=== PATIENT | male | born 1955 | race Caucasian/White ===

== ENCOUNTER 2021-02-16 08:29 | Inpatient (IN) ==
[2021-02-16] MEDS ORDERED: 0.9 % Sodium Chloride 2,000 ML ONE (08:36)
[2021-02-16] MEDS ORDERED: *HR* Heparin 10,000 UNIT/10 ML VIAL ONE (08:37)
[2021-02-16] MEDS ORDERED: ISOVUE-370 200 ML INFUS..BTL ONE (08:37)
[2021-02-16] MEDS ORDERED: Heparin 1,000 UNITS/500 mL 500 ML ONE (08:37)
[2021-02-16] MEDS ORDERED: Nitroglycerin 1,000 MCG/5 ML VIAL IV ONE (08:37)
[2021-02-16] MEDS ORDERED: Morphine Sulfate 2 MG/ML SYRINGE IVP PRN (08:40)
[2021-02-16] MEDS ORDERED: *HR* Heparin 5,000 UNIT/ML VIAL IVP PRN ×2 (08:40)
[2021-02-16] MEDS ORDERED: *HR* Ticagrelor 90 MG TABLET PO ONE (08:40)
[2021-02-16] MEDS ORDERED: Ondansetron 4 MG/2 ML VIAL IVP ONE (08:40)
[2021-02-16] MEDS ORDERED: *HR* Heparin 5,000 UNIT/ML VIAL IVP ONE (08:40)
[2021-02-16] MEDS ORDERED: *HR* Midazolam HCl 2 MG/2 ML VIAL ONE (08:42)
[2021-02-16] MEDS ORDERED: *HR* FentaNYL (PF) 100 MCG/2 ML VIAL ONE (08:42)
[2021-02-16] MEDS ORDERED: Heparin 25,000UNIT/250ML 1/2NS 25,000 UNIT/250 ML IV.SOLN IVC SCH (08:45)
[2021-02-16 08:48] LABS: Basophils # 0.1 K/mcL (0.0-0.2); Basophils % 0.6 %; Eosinophils # 0.3 K/mcL (0.0-0.6); Eosinophils % 1.7 %; Hematocrit 39.1 % (37.5-50.1); Immature Granulocytes % 0.4 % (0-4); Lymphocytes # 3.8 K/mcL (0.6-4.6); Lymphocytes % 25.8 %; Mean Corpuscular HGB Conc 33.2 g/dL (31.6-35.5); Mean Corpuscular Hemoglobin 30.5 pg (28.0-33.3); Mean Corpuscular Volume 91.8 fL (83.0-100.0); Mean Platelet Volume 8.8 fL (9.4-12.4); Monocytes % 6.8 %; Neutrophils # 9.5 K/mcL (1.6-8.9); Platelet Count 369 K/mcL (140-400); Red Blood Count 4.26 M/mcL (4.19-5.50); Red Cell Distribution Width 13.5 % (11.5-14.5); Segmented Neutrophils % 64.7 %; White Blood Count 14.6 K/mcL (4.3-11.1)
[2021-02-16 08:58] LABS: Activated Partial Thrombo Time 26.5 Seconds (26.0-36.0); INR 0.9; Prothrombin Time 10.9 Seconds (9.4-12.1)
[2021-02-16 09:10] LABS: Alanine Aminotransferase 22 Units/L (7-52); Albumin 4.5 g/dL (3.5-5.7); Albumin/Globulin Ratio 1.5 (1.1-2.2); Alkaline Phosphatase 59 Units/L (34-104); Aspartate Amino Transferase 19 Units/L (13-39); BUN/Creatinine Ratio 19 (6-26); Bilirubin,Total 0.3 mg/dL (0.3-1.0); Blood Urea Nitrogen 19 mg/dL (8-23); Calcium 9.7 mg/dL (8.6-10.3); Carbon Dioxide 22 mEq/L (23-29); Chloride 103 mEq/L (98-107); Chol/HDL Ratio 4.9 (0-4.9); Cholesterol 147 mg/dL (< 200); Globulin 3.1 g/dL (2.4-3.5); Glucose 207 mg/dL (70-105); HDL Cholesterol 30 mg/dL (40-59); LDL Cholesterol,Calculated 71 mg/dL (< 100); Magnesium 1.4 mg/dL (1.6-2.6); Osmolality,Calculated 290 (280-300); Potassium 3.5 mEq/L (3.5-5.1); Sodium 136 mEq/L (136-145); Total Protein 7.6 g/dL (6.4-8.9); Triglycerides 231 mg/dL (< 150); Troponin I 0.03 ng/mL (< 0.04); eGFR For African Americans > 60 (> 60); eGFR For Non-African Americans > 60 (> 60)
[2021-02-16] MEDS ORDERED: Ondansetron 4 MG/2 ML VIAL IVP PRN (09:56)
[2021-02-16] MEDS ORDERED: Perflutren Lipid Microsphere 1.3 ML in 0.9 % Sodium Chloride 8.7 ML IVP PRN (09:56)
[2021-02-16] MEDS ORDERED: 0.9 % Sodium Chloride 1,000 ML IVC SCH (10:00)
[2021-02-16] MEDS ORDERED: *HR* Dextrose 50 % in Water (Vial) 50 ML VIAL IVP PRN (10:46)
[2021-02-16] MEDS ORDERED: D5% in Water 1,000 ML IVC PRN (10:46)
[2021-02-16] MEDS ORDERED: Dextrose Gel 15 GM/37.5 ML TUBE PO PRN ×2 (10:46)
[2021-02-16] MEDS: Insulin LISPRO 300 UNITS/3 ML VIAL SUBQ SCH ×2 (12:50→16:22)
[2021-02-16] MEDS: Magnesium Oxide 400 MG TABLET PO SCH ×2 (12:51→20:38)
[2021-02-16] MEDS: *HR* Heparin 5,000 UNIT/ML VIAL SQ SCH (16:16)
[2021-02-16] MEDS: carvediloL 6.25 MG TABLET PO SCH (16:17)
[2021-02-16] MEDS ORDERED: cloNIDine HCL 0.1 MG TABLET PO PRN (17:39)
[2021-02-16] MEDS ORDERED: *HR* HYDROcodone/Acet 5/325 mg TABLET PO PRN (17:39)
[2021-02-16] MEDS: *HR* Ticagrelor 90 MG TABLET PO SCH (20:37)
[2021-02-16] MEDS ORDERED: NON-FORMULARY MEDICATION 1 EACH EACH (Fish Oil/Dha/Epa [Fish Oil 1,200 Mg Fish Oil] 1 EACH PO SCH (21:00)
[2021-02-17] MEDS: *HR* Heparin 5,000 UNIT/ML VIAL SQ SCH ×2 (05:30→17:17)
[2021-02-17 05:52] LABS: Hematocrit 36.6 % (37.5-50.1); Hemoglobin 12.2 g/dL (12.9-16.9)
[2021-02-17 05:53] LABS: Basophils # 0.1 K/mcL (0.0-0.2); Basophils % 0.5 %; Eosinophils # 0.1 K/mcL (0.0-0.6); Hematocrit 35.8 % (37.5-50.1); Hemoglobin 11.9 g/dL (12.9-16.9); Immature Granulocytes % 0.4 % (0-4); Lymphocytes # 2.5 K/mcL (0.6-4.6); Lymphocytes % 22.1 %; Mean Corpuscular HGB Conc 33.2 g/dL (31.6-35.5); Mean Corpuscular Hemoglobin 30.1 pg (28.0-33.3); Mean Corpuscular Volume 90.6 fL (83.0-100.0); Mean Platelet Volume 8.9 fL (9.4-12.4); Monocytes # 0.9 K/mcL (0.0-1.3); Monocytes % 7.7 %; Neutrophils # 7.6 K/mcL (1.6-8.9); Platelet Count 289 K/mcL (140-400); Red Blood Count 3.95 M/mcL (4.19-5.50); Red Cell Distribution Width 13.4 % (11.5-14.5); Segmented Neutrophils % 68.3 %; White Blood Count 11.1 K/mcL (4.3-11.1)
[2021-02-17 06:13] LABS: BUN/Creatinine Ratio 19 (6-26); Blood Urea Nitrogen 15 mg/dL (8-23); Carbon Dioxide 23 mEq/L (23-29); Chloride 105 mEq/L (98-107); Glucose 152 mg/dL (70-105); Magnesium 1.7 mg/dL (1.6-2.6); Osmolality,Calculated 286 (280-300); Potassium 3.8 mEq/L (3.5-5.1); Sodium 136 mEq/L (136-145); eGFR For African Americans > 60 (> 60); eGFR For Non-African Americans > 60 (> 60)
[2021-02-17 06:18] LABS: BUN/Creatinine Ratio 19 (6-26); Blood Urea Nitrogen 15 mg/dL (8-23); eGFR For African Americans > 60 (> 60); eGFR For Non-African Americans > 60 (> 60)
[2021-02-17] MEDS: Insulin LISPRO 300 UNITS/3 ML VIAL SUBQ SCH ×3 (08:43→17:18)
[2021-02-17] MEDS: carvediloL 6.25 MG TABLET PO SCH ×2 (08:47→17:17)
[2021-02-17] MEDS: *HR* Ticagrelor 90 MG TABLET PO SCH ×2 (08:48→20:42)
[2021-02-17] MEDS ORDERED: Aspirin 81 MG TAB.CHEW PO SCH (09:00)
[2021-02-17] MEDS ORDERED: Multivit/Ca/Min/Fe/FA 1 TAB TABLET PO SCH (09:00)
[2021-02-17] MEDS ORDERED: *HR* Dextrose 50 % in Water (Vial) 50 ML VIAL IVP PRN (11:11)
[2021-02-17] MEDS ORDERED: *HR* HYDROcodone/Acet 5/325 mg TABLET PO PRN (11:11)
[2021-02-17] MEDS ORDERED: D5% in Water 1,000 ML IVC PRN (11:11)
[2021-02-17] MEDS ORDERED: Perflutren Lipid Microsphere 1.3 ML in 0.9 % Sodium Chloride 8.7 ML IVP PRN (11:11)
[2021-02-17] MEDS ORDERED: Ondansetron 4 MG/2 ML VIAL IVP PRN (11:11)
[2021-02-17] MEDS ORDERED: Dextrose Gel 15 GM/37.5 ML TUBE PO PRN ×2 (11:11)
[2021-02-17] MEDS ORDERED: Morphine Sulfate 2 MG/ML SYRINGE IVP PRN (11:11)
[2021-02-18 01:22] LABS: Basophils # 0.1 K/mcL (0.0-0.2); Basophils % 0.6 %; Eosinophils # 0.2 K/mcL (0.0-0.6); Eosinophils % 1.7 %; Hematocrit 36.6 % (37.5-50.1); Hemoglobin 12.4 g/dL (12.9-16.9); Immature Granulocytes % 0.4 % (0-4); Lymphocytes # 2.4 K/mcL (0.6-4.6); Lymphocytes % 26.6 %; Mean Corpuscular HGB Conc 33.9 g/dL (31.6-35.5); Mean Corpuscular Hemoglobin 30.8 pg (28.0-33.3); Mean Platelet Volume 9.4 fL (9.4-12.4); Monocytes # 0.8 K/mcL (0.0-1.3); Monocytes % 8.5 %; Neutrophils # 5.7 K/mcL (1.6-8.9); Platelet Count 276 K/mcL (140-400); Red Blood Count 4.02 M/mcL (4.19-5.50); Red Cell Distribution Width 13.7 % (11.5-14.5); Segmented Neutrophils % 62.2 %; White Blood Count 9.1 K/mcL (4.3-11.1)
[2021-02-18 01:42] LABS: BUN/Creatinine Ratio 21 (6-26); Blood Urea Nitrogen 19 mg/dL (8-23); Carbon Dioxide 23 mEq/L (23-29); Chloride 105 mEq/L (98-107); Glucose 155 mg/dL (70-105); Magnesium 1.8 mg/dL (1.6-2.6); Osmolality,Calculated 287 (280-300); Sodium 136 mEq/L (136-145); eGFR For African Americans > 60 (> 60); eGFR For Non-African Americans > 60 (> 60)
[2021-02-18] MEDS: *HR* Heparin 5,000 UNIT/ML VIAL SQ SCH (06:05)
[2021-02-18 07:19] VITALS: BP 164/91
[2021-02-18] MEDS: *HR* Ticagrelor 90 MG TABLET PO SCH (07:26)
[2021-02-18] MEDS: carvediloL 6.25 MG TABLET PO SCH (07:26)
[2021-02-18] MEDS: Insulin LISPRO 300 UNITS/3 ML VIAL SUBQ SCH (07:28)
[2021-02-18] MEDS ORDERED: Aspirin 81 MG TAB.CHEW PO SCH (09:00)
[2021-02-18] MEDS ORDERED: Multivit/Ca/Min/Fe/FA 1 TAB TABLET PO SCH (09:00)
== END 2021-02-18 11:45 | disposition home or self-care (01) | DRG 247 ==
LOC: EMEROOARM 08:29 → ICNU 08:48 → 2NNU 02-17 13:11
PROVIDERS: ADMIT Internal Medicine Cardiovascular Disease; ATTEND Internal Medicine Cardiovascular Disease